=== PATIENT | male | born 1950 | race Caucasian/White ===

== ENCOUNTER → 2016-12-31 | Outpatient (CLI) | payer OTHER ==
[~2016-12-31] MED LIST: ATOR-24 PO; CLBCR15 EXT; FINA5TAB PO; FLM4 PO; FLNIN NAE; GLC500 PO; HALO0.052 TOP; LEVO125T7 PO; LISI-729 PO; SALSALATE PO; THIA100T11 PO
== END | disposition home or self-care (01) ==
LOC: C.LABBC 09:22
PROVIDERS: ATTEND Nurse Practitioner Family
DX: R31.9 Hematuria, unspecified (principal)

== ENCOUNTER → 2017-01-16 | Outpatient (CLI) | payer OTHER | END | disposition home or self-care (01) | LOC: C.PATHSPEC 01-15 11:18 | PROVIDERS: ATTEND Urology | DX: R31.0 Gross hematuria (principal); N40.1 Benign prostatic hyperplasia with lower urinary tract symptoms ==